=== PATIENT | male | born 1995 | race Two or more races ===

== ENCOUNTER 2020-06-30 19:06 | Emergency (ER) | payer BC ==
[2020-06-30 19:18] VITALS: BP 125/92; PULSE 95
--- NOTE | 2020-06-30 19:49 | EDM.PDOC ---
ED HPI GENERAL MEDICAL PROBLEM - General Chief Complaint: Respiratory Problem Stated Complaint: sob covid positive Time Seen by Provider: 06/30/20 19:12 Source of Information: Reports: Patient, RN Notes Reviewed History Limitations: Reports: No Limitations - History of Present Illness INITIAL COMMENTS - FREE TEXT/NARRATIVE: Patient is a 25-year-old male presenting to the emergency department with complaints of feeling short of breath. He was diagnosed with Covid 2 days ago, but started developing symptoms 6 days ago. Symptoms initially began as nasal congestion. He has since lost his sense of taste and smell. This morning he began to feel short of breath. He denies any fever or chills. States he has a very occasional cough but nothing significant. Denies any abdominal pain, nausea, vomiting, or diarrhea. He has no underlying respiratory conditions. Headache Pain Score (Numeric/FACES): 5 - Related Data Allergies Allergy/AdvReac Type Severity Reaction Status Date / Time aripiprazole [From Abilify] Allergy Abdominal Verified 06/30/20 19:18 Cramps Penicillins Allergy Hives Verified 06/30/20 19:18 Home Meds: Home Meds hydrOXYzine HCL [Hydroxyzine HCl] 10 mg PO DAILY PRN 06/30/20 [History] Past Medical History - Past Health History Medical/Surgical History: Denies Medical/Surgical History Neurological History: Reports: Migraines Psychiatric History: Reports: Anxiety Social & Family History - Family History Family Medical History: Noncontributory - Tobacco Use Tobacco Use Status *Q: Never Tobacco User - Caffeine Use Caffeine Use: Reports: Soda - Recreational Drug Use Recreational Drug Use: No ED ROS GENERAL - Review of Systems Review Of Systems: See Below Constitutional: Reports: Fatigue. Denies: Fever, Chills HEENT: Reports: Sinus Problem. Denies: Throat Pain Respiratory: Reports: Shortness of Breath, Cough. Denies: Wheezing Cardiovascular: Reports: No Symptoms Endocrine: Reports: No Symptoms GI/Abdominal: Reports: No Symptoms. Denies: Abdominal Pain, Diarrhea, Nausea, Vomiting : Reports: No Symptoms Musculoskeletal: Reports: No Symptoms Skin: Reports: No Symptoms Neurological: Reports: No Symptoms Psychiatric: Reports: No Symptoms Hematologic/Lymphatic: Reports: No Symptoms Immunologic: Reports: No Symptoms ED EXAM, GENERAL - Physical Exam Exam: See Below Exam Limited By: No Limitations General Appearance: Alert, WD/WN, No Apparent Distress Respiratory/Chest: No Respiratory Distress, Lungs Clear, Normal Breath Sounds, No Accessory Muscle Use, Chest Non-Tender Cardiovascular: Normal Peripheral Pulses, Regular Rate, Rhythm, No Edema, No Gallop, No JVD, No Murmur, No Rub GI/Abdominal: Normal Bowel Sounds, Soft, Non-Tender, No Organomegaly, No Distention, No Abnormal Bruit, No Mass Neurological: Alert, Oriented, CN II-XII Intact, Normal Cognition, Normal Gait, Normal Reflexes, No Motor/Sensory Deficits Psychiatric: Normal Affect, Normal Mood Skin Exam: Warm, Dry, Intact, Normal Color, No Rash Course - Vital Signs Last Recorded V/S: Last Vital Signs Temp 98.0 F 06/30/20 19:15 Pulse 95 06/30/20 19:15 Resp 20 06/30/20 19:15 BP 125/92 H 06/30/20 19:15 Pulse Ox 100 06/30/20 19:15 - Orders/Labs/Meds Orders: Active Orders 24 hr Category Date Time Status Chest 1V Frontal [CR] Stat Exams 06/30/20 19:22 Taken - Re-Assessments/Exams Free Text/Narrative Re-Assessment/Exam: Patient is a 25-year-old male presenting to the emergency department with complaints of feeling short of breath since this morning. He is a known diagnosis of COVID-19. Vital signs in triage showed a oxygen saturation of 100% on room air. Chest x-ray was completed and was found to be normal. Lung sounds are clear to auscultation. Discussed with patient that unfortunately feeling short of breath is fairly common with COVID-19, however he does not have any underlying pneumonia. Discussed the possibility of inhaler if he feels lik e he is wheezy, however patient declined this. States he mostly just wanted his oxygen checked to make sure that he is getting enough oxygen. He states he thinks he will be fine treating the symptoms at home. Discussed return precautions. Discharge instructions as documented. Departure - Departure Time of Disposition: 19:51 Disposition: Home, Self-Care 01 Condition: Good Clinical Impression: COVID-19 - Discharge Information *PRESCRIPTION DRUG MONITORING PROGRAM REVIEWED*: No *COPY OF PRESCRIPTION DRUG MONITORING REPORT IN PATIENT VANIA: No Instructions: Shortness of Breath, Adult, [id number], COVID-19 Frequently Asked Questions, COVID-19 Additional Instructions: You were seen in the emergency department today for feeling short of breath with a known diagnosis of COVID-19. Chest x-ray was completed and found to be normal. There is no signs of any viral pneumonia. Your oxygen saturation was 100% on room air which is excellent. Your lung sounds were clear. As we discussed, it is fairly common to feel short of breath with COVID-19, however you are doing quite well at this time. Recommend that you continue to treat s ymptoms at home. If you feel thatyour symptoms are worsening, please not hesitate to return to the emergency department for reevaluation. Sepsis Event Note (ED) - Evaluation Sepsis Screening Result: No Definite Risk - Focused Exam Vital Signs: Vital Signs Temp Pulse Resp BP Pulse Ox 06/30/20 19:15 98.0 F 95 20 125/92 H 100 - My Orders Last 24 Hours: My Active Orders 06/30/20 19:22 Chest 1V Frontal [CR] Stat - Assessment/Plan Last 24 Hours: My Active Orders 06/30/20 19:22 Chest 1V Frontal [CR] Stat
--- NOTE | 2020-07-01 08:59 | CR ---
PROCEDURE INFORMATION: Exam: XR Chest, 1 View Exam date and time: 06/30/2020 7:08 PM Age: 25 years old Clinical indication: Shortness of breath TECHNIQUE: Imaging protocol: XR of the chest Views: 1 view. COMPARISON: DX Chest 1V Frontal 10/14/2016 2:19 AM FINDINGS: Lungs: Nonspecific bilateral hyperinflation. No change since 2017. No consolidation. Pleural space: Unremarkable. No pleural effusion. No pneumothorax. Heart/Mediastinum: Unremarkable. No cardiomegaly. Bones/joints: Unremarkable. IMPRESSION: 1. No acute findings. 2. No infiltrates. 3. No pleural effusions. 4. Nonspecific hyperinflation bilaterally. This was present in 2017. This could reflect air trapping from reactive airway disease or an upper respiratory infection. Thank you for allowing us to participate in the care of your patient. Dictated and Authenticated by: Shayne Cohen MD 06/30/2020 9:01 PM Central Time ([place] & [place]) [email or web address]
== END 2020-06-30 20:12 | disposition home or self-care (01) ==
LOC: JD.ED 19:06
DX: U07.1 COVID-19 (principal); Z88.8 Allergy status to other drugs, medicaments and biological substances; Z88.0 Allergy status to penicillin
CPT/HCPCS: 71045; 71045-26; 99282; 99284-25

== ENCOUNTER 2023-12-03 12:44 | Emergency (ER) | payer BC ==
[2023-12-03 14:05] LABS: BASOPHILS PERCENT AUTO 0.5 % (0.0-1.0); EOSINOPHILS ABSOLUTE AUTO 0.1 K/mm3 (0.0-0.4); EOSINOPHILS PERCENT AUTO 1.2 % (0.0-6.0); HEMATOCRIT 43.5 % (42.0-52.0); HEMOGLOBIN 15.1 gm/dl (14.0-18.0); IMMATURE GRAN ABSOLUTE AUTO 0.01 K/mm3 (0.00-0.05); IMMATURE GRAN PERCENT AUTO 0.2 % (0.0-0.4); LYMPHOCYTES PERCENT AUTO 48.8 % (24.0-44.0); MEAN CORPUSCULAR HEMOGLOBIN 30.3 pg (28.0-32.0); MEAN CORPUSCULAR HGB CONC 34.7 g/dl (32.0-36.0); MEAN CORPUSCULAR VOLUME 87.2 fl (83.0-99.0); MEAN PLATELET VOLUME 9.6 fl (9.4-12.4); MONOCYTES ABSOLUTE AUTO 0.3 K/mm3 (0.0-0.8); MONOCYTES PERCENT AUTO 7.5 % (0.0-8.0); NEUTROPHILS ABSOLUTE AUTO 1.7 K/mm3 (1.8-7.7); NEUTROPHILS PERCENT AUTO 41.8 % (41.0-71.0); PLATELET COUNT,PLT 269 K/mm3 (150-400); RED BLOOD CELL COUNT 4.99 M/mm3 (4.52-5.90); WHITE BLOOD CELL COUNT,WBC 4.12 K/mm3 (3.9-11.3)
[2023-12-03 14:08] LABS: APPEARANCE,URINE CLEAR (Clear); BILIRUBIN,URINE NEGATIVE (Negative); COLOR,URINE YELLOW (Yellow); GLUCOSE,URINE NEGATIVE (Negative); KETONES,URINE NEGATIVE (Negative); LEUKOCYTE ESTERASE,URINE NEGATIVE (Negative); NITRITE,URINE NEGATIVE (Negative); OCCULT BLOOD,URINE NEGATIVE (Negative); PROTEIN,URINE NEGATIVE (Negative); UROBILINOGEN,URINE 0.2 (0.2-1.0)
[2023-12-03 14:19] LABS: BARBITURATE SCREEN,URINE NEGATIVE (CUTOFF=200); BENZODIAZEPINES SCREEN,URINE NEGATIVE (CUTOFF=150); BUPRENORPHINE SCREEN,URINE NEGATIVE (CUTOFF=10); METHADONE SCREEN, URINE NEGATIVE (CUT0FF=200); METHAMPHETAMINES SCREEN, URINE NEGATIVE (CUTOFF=500); OXYCODONE SCREEN,URINE NEGATIVE (CUT0FF=100); THC SCREEN,URINE 20 NG/ML NEGATIVE (CUTOFF=50)
[2023-12-03 14:34] LABS: A/G RATIO 1.4 (1-2); ALBUMIN 4.4 g/dl (3.4-5.0); BILIRUBIN TOTAL 0.6 mg/dL (0.2-1.0); CALCIUM 9.1 mg/dL (8.5-10.1); EST CRCL DRUG DOSING (CG) 101.98 mL/min; PROTEIN TOTAL,TP 7.6 g/dl (6.4-8.2); TSH 1.197 uIU/mL (0.358-3.74)
[2023-12-03 14:55] LABS: AMPHETAMINES SCREEN, URINE NEGATIVE (CUTOFF=500)
[2023-12-03 16:09] VITALS: BP 109/76; PULSE 73
[2023-12-03 17:02] LABS: RBC,URINE 0-5 /hpf (0-5); SQUAMOUS EPITHELIAL CELLS,UR 0-5 /hpf (0-5); WBC,URINE 0-5 /hpf (0-5)
[2023-12-03 17:03] LABS: BACTERIA,URINE FEW /hpf (FEW); MUCUS,URINE FEW /hpf (FEW)
== END 2023-12-03 15:51 | disposition home or self-care (01) ==
LOC: JD.ED 12:44
DX: R51.9 Headache, unspecified (principal); Z79.899 Other long term (current) drug therapy; Z88.0 Allergy status to penicillin; Z88.8 Allergy status to other drugs, medicaments and biological substances
CPT/HCPCS: 36415; 70450; 70450-26; 80053; 80306; 80307; 81001; 83735; 84443; 85025; 99282; 99284